=== PATIENT | male | born 1940 | race Caucasian/White ===

== ENCOUNTER 2017-10-23 10:26 | Inpatient (IN) | payer MEDICARE ==
[~2017-10-23] VITALS: Ht 182.9 cm; Wt 111.2 kg
--- NOTE | ~2017-10-23 | OP ---
PATIENT NAME: HERMILO STRINGER MEDICAL RECORD: [id number] :40 LOCATION:[facility] ADMISSION DATE:10/23/17 SURGEON: STEPHANIE GARCIA MD DATE OF OPERATION: 10/23/2017 PROCEDURES: Left heart cath, selective coronary artery, right femoral artery approach. CATHETERS: 5-Cameroonian sheath, 5/4 left and right Camille, 5/4 pig. The procedure was well tolerated and the patient returned to the [facility]. Sheath removed. ExoSeal device was placed. FINDINGS: Left ventriculography not performed. Aortic root injection shows mild aortic insufficiency. CORONARY ANATOMY: LEFT MAIN: Left main has 40% stenosis. LAD: Takeoff of first diagonal has a 90% stenosis of those vessels; however, LAD and diagonal both appeared to be good target distally. The true ramus branch has about 80% stenosis in proximal portion. CIRCUMFLEX: It has one moderate-size OM with an ostial stenosis of 90%. RIGHT CORONARY: In its midportion, it has 80% stenosis. IMPRESSION: Multivessel coronary artery disease and mild AI. Dr. Mcqueen was consulted for possible coronary artery bypass grafting. TRANSINT:[id number] Voice Confirmation ID: [id number] DOCUMENT ID: [id number] STEPHANIE GARCIA MD at 1337 CC: [id number] DICTATION DATE: 10/23/17 1243 SWING SAW OPERATOR: 10/23/17 1331 DIS IN 11/02/17 [place] [id number] [place] [id number]
--- NOTE | ~2017-10-23 | HP ---
PATIENT: HERMILO STRINGER MEDICAL RECORD: [id number] ACCOUNT: [id number] LOCATION:[facility] : 40 ADMISSION DATE: 10/23/17 HISTORY AND PHYSICAL EXAMINATION HISTORY OF PRESENT ILLNESS: A 76-year-old gentleman with known history of coronary artery disease, history of hypertension, and ongoing smoking history, who presented to the ER with chest pain radiating to the jaw of approximately 4 hours duration. It awoke him from sleep. He does have history of smoking, history of hypertension. EKGs showed right bundle, marginal ST elevation inferiorly. He was brought to the labor utilization superintendent on an emergent basis. PAST MEDICAL HISTORY: Includes history of hypertension, hyperlipidemia. PHYSICAL EXAMINATION: GENERAL: Uncomfortable appearing gentleman in mild distress. VITAL SIGNS: Pulse is 99 and regular, blood pressure 141/78. HEENT: Normocephalic, atraumatic. NECK: No JVD or bruit. HEART: Regular. LUNGS: Desir clear. EXTREMITIES: Pulses 2+. No edema. IMPRESSION: Possible STEMI, to the labor utilization superintendent on an urgent basis. TRANSINT:[id number] Voice Confirmation ID: [id number] DOCUMENT ID: [id number] STEPHANIE GARCIA MD at 1337 CC: [id number] DICTATION DATE: 10/23/17 1157 CONSTRUCTION MATERIALS TESTER: 10/23/17 1417 DIS IN 11/02/17 [place] [address] [place] [address]
--- NOTE | ~2017-10-23 | HEMODYNAMI ---
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 MEDICAL RECORD: [id number] : 40 [id number] ADMISSION DATE: 10/23/17 Generatedon:10/23/201712:45 Patient name: HERMILO STRINGER Patient #: [id number] : 1940 Date of study: 10/23/2017 Page: Of Hemodynamic Procedure Report Patient Data Patient Demographics Procedure consent was obtained First Name: HERMILO Gender: Male Last Name: MYKE : 1940 Patient #: [id number] Age: 76 year(s) Race: SSN: [id number] Additional ID: [id number] Contact details Address: [address] [place] [address] [employer] [place] State: [place] City: [place] Zip code: [address] Admission Admission Data Admission Date: 10/23/2017 Admission Time: 10:26 Arrival Date: 10/23/2017 Arrival Time: 10:26 Admit Source: Emergency Insurance Payor: Medicare department Lab Results Lab Result Date: 10/23/2017 Lab Result Time: 0:00 Biochemistry Name Units Result Min Max BUN mg/dl 14 --(--*-)-- 7 18 Creatinine mg/dl 0.8 --(-*--)-- 0.6 1.3 CBC Name Units Result Min Max Hemoglobin g/dl 14.9 --(-*--)-- 13.5 17.5 Procedure Procedure Types Cath Procedure Diagnostic Procedure LHC LHC w/Coronaries Miscellaneous Procedures Moderate Sedation up to 15 minutes Procedure Description Procedure Date Procedure Date: 10/23/2017 Procedure Start Time: 12:03 Procedure End Time: 12:44 Procedure Staff Name Function Shoaib Ruggiero MD Performing Physician Ana M Cortez RT Monitor Salma Canada RT Scrub Jason Rutherford RN Nurse Procedure Data Cath Procedure Fluoroscopy Diagnostic fluoroscopy Total fluoroscopy Time: 2.4 time: 2.4 min min Diagnostic fluoroscopy Total fluoroscopy dose: 755 dose: 755 mGy mGy Contrast Material Contrast Material Type Amount (ml) Isovue 300 78 Entry Location Entry Primary Successful Side Size Upsize Upsize Entry Closure Succes sful Closure Location (Fr) 1 (Fr) 2 (Fr) Remarks Device Remarks Femoral Right 6 Fr Exoseal artery Short Estimated blood loss: 5 ml Diagnostic catheters Device Type Used For End Catheter Placement MULTIPACK JL 4.0 5Fr Left Coronary catheter Angiography MULTIPACK 3DRC 5Fr Right Coronary catheter Angiography MULTIPACK Pigtail 5 Fr LV Angiography catheter Procedure Complications No complications Procedure Medications Medication Administration Route Dosage 0.9% NaCl I.V. 100 ml/hr Oxygen NC 3 l/min Heparin Flush Bag added to field 2 bags (1000units/500ml NS) Lidocaine 2% added to field Versed I.V. 0.5 mg Fentanyl I.V. 25 mcg Heparin Bolus I.V. 5000 units Heparin Drip I.V. drip 1000 units/hr (38232xhfts/250 D5W) Hemodynamics Rest HGB: 14.9 (g/dl) Heart Rate: 88 (bpm) Snapshots Pre Cath Intra NCS Post Cath Vital Signs Time Heart Resp SPO2 NIBP (mmHg) Rhythm Pain Sedation Rate (ipm) (%) Status Level (bpm) 11:55:14 87 14 99 141/78(101) NSR 6 (11) 10(A) , Intense 11:59:57 86 12 99 130/72(106) NSR 6 (11) 10(A) , Intense 12:04:38 85 14 98 121/71(91) NSR 0 (11) 9(A) , No pain 12:09:20 90 12 97 127/72(103) NSR 0 (11) 9(A) , No pain 12:14:01 89 13 98 118/64(87) NSR 0 (11) 9(A) , No pain 12:42:01 98 118/59(96) NSR 0 (11) 10(A) , No pain Medications Time Medication Route Dose Verified Delivered Reason Not es Effectiveness by by 11:54:47 0.9% NaCl I.V. 100 Jason Jason Per physician ml/hr Krish Rutherford RN RN 11:54:59 Oxygen NC 3 l/min Jason Jason Per physician Krish Rutherford RN RN 11:55:11 Heparin Flush added 2 bags Jason Jason used for Bag to Krish Rutherford procedure (1000units/500ml RN RN NS) 11:55:25 Lidocaine 2% added Jason Jason used for to Lorigan Lorigan procedure RN RN 12:01:18 Versed I.V. 0.5 mg Jason Jason for sedation Krish Rutherford RN RN 12:01:32 Fentanyl I.V. 25 mcg Jason Jason for sedation Krish Rutherford RN RN 12:14:24 Heparin Bolus I.V. 5000 Jason Jason for units Lorigan Lorstephany anticoagulation RN RN 12:19:22 Heparin Drip I.V. 1,000 Jason Jason for (65321sawsr/250 drip units/hr Lorigan Lorigan anticoagulation D5W) RN mortuary beautician Log Time Note 11:39:39 Informed consent obtained and on chart 11:39:54 Admit Source: Emergency department 11:40:00 Arrival Date: 10/23/2017 10:26:00 AM 11:40:09 Insurance Payor : Medicare 11:40:46 Lab Result : Hemoglobin 14.9 g/dl 11:40:46 Lab Result : Creatinine 0.8 mg/dl 11:40:46 Lab Result : BUN 14 mg/dl 11:40:56 Diagnostic Cath Status : Elective 11:41:15 Salma Counts RT(R) sent for patient. Start room use. 11:41:16 Time tracking: Regular hours 11:41:21 Plan of Care:Hemodynamics will remain stable., Cardiac rhythm will remain stable., Comfort level will be maintained., Respiratory function will remain adequate., Patient/ family verbilizes understanding of procedure., Procedure tolerated without complication., Recovers from procedure without complications.. 11:51:32 Patient received from ED to CCL 1 Alert and oriented. Tansferred to table in Supine position. 11:51:33 Warm blankets applied, and james hugger turned on for patient comfort. 11:51:34 Correct patient and procedure confirmed by team. 11:51:34 ECG and BP/O2 sat monitors applied to patient. 11:54:23 Vital chart was started 11:54:47 0.9% NaCl 100 ml/hr I.V. was administered by Jason Rutherfrod RN; Per physician; 11:54:59 Oxygen 3 l/min NC was administered by Jason Rutherford RN; Per physician; 11:55:11 Heparin Flush Bag (1000units/500ml NS) 2 bags added to field was administered by Jason Rutherford RN; used for procedure; 11:55:25 Lidocaine 2% added to field was administered by Jason Rutherford RN; used for procedure; 11:56:46 Baseline sample Acquired. 11:56:51 Rhythm: sinus rhythm , w/ ST elevation 11:56:53 Full Disclosure recording started 11:56:56 H&P Date Dictated: 10/23/2017 New H&P dictated by physician.. 11:56:58 Pre-procedure instructions explained to patient. 11:56:58 Pre-op teaching completed and patient verbalized understanding. 11:57:01 Family in waiting room. 11:57:05 Patient NPO since Midnight. 11:57:08 Is the patient allergic to Iodine/contrast media? No. 11:57:10 Was the patient premedicated? No 11:59:48 Is patient on blood thinner?No 11:59:51 Patient diabetic? No. 11:59:54 Previous problem with sedation/anesthesia? No ? 11:59:56 Snore? Yes 11:59:59 Sleep apnea? Yes 12:00:00 Deviated septum? No 12:00:01 Opens mouth fully? Yes 12:00:02 Sticks out tongue? Yes 12:00:06 Airway obstruction? No ? 12:00:12 Dentures? No ? 12:00:25 Pre procedure: right dorsailis pedis pulse 1+ Palpable, but thready & weak; easily obliterated 12:00:28 Pre procedure: left dorsailis pedis pulse 1+ Palpable, but thready & weak; easily obliterated 12:00:31 Patient pain scale 7/10 ?. 12:00:38 IV patent on arrival in left forearm with 0.9% NaCl at [facility]. 12:00:40 Lab results completed and on chart. 12:00:44 Right groin area was prepped with chlora-prep and draped in sterile fashion 12:00:45 Alarms reviewed by RYoav N. 12:00:45 Sharps counted by scrub and verified by R.N. 12:00:47 Physician arrived 12:00:47 --------ALL STOP TIME OUT------ 12:00:48 Final Timeout: patient, procedure, and site verified with staff and physician. All members of the team are in agreement. 12:00:49 Right groin site verified by team. 12:00:52 Physical assessment completed. ASA score P 2 - A patient with mild systemic disease as per Shoaib Ruggiero MD. 12:00:56 Sedation plan: IV Moderate Sedation Medication:Versed, Fentanyl 12:01:18 Versed 0.5 mg I.V. was administered by Jason Rutherford RN; for sedation; 12:01:32 Fentanyl 25 mcg I.V. was administered by Jason Rutherford RN; for sedation; 12:03:38 Procedure started. 12:03:42 Local anesthetic to right femoral artery with Lidocaine 2% by Shoaib Rgugiero MD.INITIAL ACCESS ONLY 12:03:51 A 6 Fr Short sheath was inserted into the Right Femoral artery 12:03:58 Use device set Femoral Dx 12:03:59 ACIST Syringe (17619) opened to sterile field. 12:04:00 Bag Decanter (2002S) opened to sterile field. 12:04:01 Medline Cath Pack ([id number]) opened to sterile field. 12:04:02 DIAGNOSTIC WIRE .035 260cm J wire (462006) opened to sterile field. 12:04:03 ACIST Hand Control (98062) opened to sterile field. 12:04:04 ACIST Manifold (97778) opened to sterile field. 12:04:06 DIAGNOSTIC Multipack 5Fr catheter set (AL1546) opened to sterile field. 12:04:07 Tegaderm 4 x 4 (1626W) opened to sterile field. 12:04:14 SHEATH 6FR Roslyn (MFO795) opened to sterile field. 12:04:26 A MULTIPACK JL 4.0 5Fr catheter was advanced over the wire and used for Left Coronary Angiography. 12:05:10 Zero performed for pressure channel P1 12:05:16 Zero performed for pressure channel P1 12:05:26 Zero performed for pressure channel P1 12:05:35 Zero performed for pressure channel P1 12:05:58 LCA angiography performed. 12:06:01 Injector settings: Ml/sec: 3, Volume: 6, 12:07:17 Catheter removed. 12:07:21 A MULTIPACK 3DRC 5Fr catheter was advanced over the wire and used for Right Coronary Angiography. 12:08:18 RCA angiography performed. 12:08:23 Injector settings: Ml/sec: 3, Volume: 6, 12:08:37 Catheter removed. 12:09:10 A MULTIPACK Pigtail 5 Fr catheter was advanced over the wire and used for LV Angiography. 12:11:25 Aortic Root visualized 12:11:29 Catheter removed. 12:11:41 EXOSEAL 6Fr (EX600) opened to sterile field. 12:12:45 Sheath removed intact; hemostasis achieved with Exoseal to the Right Femoral artery. 12:12:47 Procedure ended.(Physican Out) 12:13:07 Fluoroscopy time 02.40 minutes. 12:13:11 Flurop Dose total: 755 12:13:11 Fluoroscopy dose: 755 mGy 12:14:24 Heparin Bolus 5000 units I.V. was administered by Jason Rutherford RN; for anticoagulation; 12:14:24 Contrast amount:Isovue 300 78ml. 12:14:26 Sharps counted by scrub and verified by R.N. 12:14:29 Insertion/operative site no bleeding no hematoma. 12:14:35 Post-op/insertion site Right Femoral artery dressed using a 4 x 4 and Tegaderm. 12:14:40 Post right femoral artery:stable 12:14:42 Post Procedure Pulses reassessed and unchanged 12:14:46 Post procedure rhythm: unchanged. 12:14:48 Estimated blood loss: 5 ml 12:14:49 Post procedure instruction explained to patient.Patient verbalizes understanding. 12:14:50 Patient needs reinforcement of post procedure teaching. 12:15:05 Procedure type changed to Cath procedure, Diagnostic procedure, LHC, LHC w/Coronaries, Miscellaneous Procedures, Moderate Sedation up to 15 minutes 12:15:06 Procedure and supply charges have been captured, reviewed, submitted and are correct. 12:15:14 Procedure Complication : No complications 12:15:18 Vital chart was stopped 12:15:21 See physician's report for complete and final results. 12:19:22 Heparin Drip (44363xczgm/250 D5W) 1,000 units/hr I.V. drip was administered by Jason Rutherford RN; for anticoagulation; 12:41:09 Vital chart was started 12:44:39 Report given to PCU. 12:44:42 Patient transfered to PCU with Stretcher. 12:44:45 Procedure ended. 12:44:45 Full Disclosure recording stopped 12:44:49 End room use (Document Last) 12:45:38 Vital chart was stopped Device Usage Item Name Manufacture Quantity Catalog Hospital Part Current Minimal L ot# / Number Charge Number Stock Stock Serial# Code ACIST Acist 1 71469 618294 714372 074151 20 Syringe Medical (24909) Systems Inc Bag Microtek 1 2001S 853044 64345 712935 5 Decanter Medical Inc. () Medline Cardinal 1 [id number] 969158 85669 461065 5 Cath Pack Health ([id number]) DIAGNOSTIC St Wei 1 059070 088119 299898 317059 30 WIRE .035 260cm J wire (694509) ACIST Hand Acist 1 72504 617733 714760 978114 5 Control Medical (99512) Systems Inc ACIST Acist 1 03854 524154 711387 484361 5 Manifold Medical (55743) Systems Inc DIAGNOSTIC Cardinal 1 OT0884 872384 46500 870223 30 Multipack Health 5Fr catheter set (IN5350) Tegaderm 4 3M 1 1626W 111785 070359 893022 5 x 4 (1626W) SHEATH 6FR Terumo 1 YNZ150 705578 077405 777956 40 Roslyn (HOS699) MULTIPACK Cardinal 1 217661 5 JL 4.0 5Fr Health catheter MULTIPACK Cardinal 1 727441 5 3DRC 5Fr Health catheter MULTIPACK Cardinal 1 561639 5 Pigtail 5 Health Fr catheter EXOSEAL 6Fr Cardinal 1 EX600 224633 634929 908713 10 (EX600) Health Signature Audit Thida Stage Time Signature Unsigned Intra-Procedure 10/23/2017 Ana M Cortez 12:45:36 PM RT(R) Signatures Monitor : Ana M Cortez RT Signature : Date : Time : [facility] [address] [place] [address]
--- NOTE | ~2017-10-23 | EC ---
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 DATE OF SERVICE: 10/23/17 SEX: M MEDICAL RECORD: [id number] DATE OF : 40 LOCATION:[place] [address] AGE OF PATIENT: 76 ADMISSION DATE: 10/23/17 REFERRING PHYSICIAN: INTERPRETING PHYSICIAN: STEPHANIE GARCIA MD ECHOCARDIOGRAM REPORT ECHO CHARGES 4 ECHO COMPLETE CLINICAL DIAGNOSIS: PRE-OP/CAD ECHOCARDIOGRAPHIC MEASUREMENTS (adult normal given) AC root (d.<3.7cm) 3.9 cm LV Septum d (<1.2 cm> 1.7 cm Valve Excursion 1.6 cm LV Septum (systole) 1.9 cm Left Atria (s.<4.0cm> 3.8 cm LVPW d(<1.2cm) 1.8 cm RV (d.<2.3cm) 5.5 cm LVPW (sytole) 2.0 cm LV diastole(<5.6CM) 5.7 cm MV E-F(>70mm/sec) cm LV systole 4.4 cm LVOT Diameter 1.4 cm MV exc.(>10mm) 1.0 cm Est.ejection fraction (50-75%) % Pericardial Effusion N DOPPLER: LVIT cm/sec A 112 cm/sec E 49.0 cm/sec LA cm/sec RVSP 32 mmHg LVOT 161 cm/sec AOP1/2T m/s Asc. Ao 235 cm/sec RVOT 108 cm/sec RA cm/sec PA 127 cm/sec AV Gradient Peak 22.0 mmHg AV Mean 13.26mmHg AV Area 2.0 cm MV Gradient Peak 6.10 mmHg MV Mean 2.83 mmHg MV Area cm COMMENTS: JOEL WAS TRACED Sales Porter: Kiya LINDSEY Freezer Worker: 3 Dr. Ruggiero TAPE# PACS DATE OF SERVICE: 10/23/2017 Adequate 2D echo, color flow and spectral Doppler, and M-mode. LVH is present. LV internal dimensions are normal. Wall motion is normal. EF is greater than 55%. Aortic valve is calcified, but with minimal restriction of motion. Peak gradient 22 mmHg putting this in the mild range. Left atrium is normal. Mitral valve shows no prolapse. Trivial MR. Right-sided chamber size is normal, trivial TR. TRANSINT:[id number] Voice Confirmation ID: [id number] DOCUMENT ID: [id number] ECHOCARDIOGRAM REPORT [id number] HERMILO STRINGER 10/26/2017 Edited to correct date of service, dmm. STEPHANIE GARCIA MD at 1337 CC: [id number] DICTATION DATE: 10/24/17 0941 DEPORTATION OFFICER: 10/24/17 1145 DIS IN 11/02/17 [place] [address] [place] [address]
--- NOTE | ~2017-10-23 | TEE ---
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 MEDICAL RECORD: [id number] LOCATION:[place] [address] AGE OF PATIENT: 76 ADMISSION DATE: 10/23/17 SEX: M REFERRING PHYSICIAN: INTERPRETING PHYSICIAN: FLORIDA INFANTE MD TRANSESOPHAGEAL ECHOCARDIOGRAM SONI CHARGE Y INDICATIONS: CABG PREMEDICATIONS: PATIENT'S RESPONSE PROCEDURE DOPPLER MEASUREMENTS: LVIT LA PA 127 RA LVOT 161 RVOT 108 Asc. Ao 235 AV Gradient Peak 22.0 AV Mean 13.26 AV Area 2.0 MV Gradient Peak 6.10 MV Mean 2.83 MV Area INTERPRETATION: LVd: 3.9 cm LVs: 2.2 cm Doppler: 2-D: COLOR FLOW DOPPLER NORMAL SALINE STUDY: MISCELLANOUS: DIAGNOSIS: PLAN: Forestry Biology Specialist:3 Dr. Ruggiero Custom Home Installer: Lorenzo MELENDEZ COMMENTS: JOEL WAS TRACED DATE OF SERVICE: 10/26/2017 PROCEDURE: Transesophageal echo evaluation of valvular structures during bypass surgery. FINDINGS: 1. Left ventricle chamber size is within normal limits. Left ventricular systolic function is normal. Overall ejection fraction estimated at 55%. 2. Left atrium, right atrium, and right ventricular chamber sizes are within TRANSESOPHAGEAL ECHOCARDIOGRAM REPORT [id number] HERMILO STRINGER normal limits. 3. Valvular structures have normal structure and motion. 4. Doppler interrogation only reveals mild mitral regurgitation. No other valvular insufficiency or stenosis. 5. No evidence of pericardial effusion or left ventricular thrombus. TRANSINT:[id number] Voice Confirmation ID: [id number] DOCUMENT ID: [id number] at 1323 CC: [id number] DICTATION DATE: 10/26/17 1022 ELEVATOR ERECTOR HELPER: 10/27/17 0244 DIS IN 11/02/17 [facility] [address] [place] [address]
--- NOTE | ~2017-10-23 | OP ---
PATIENT NAME: HERMILO STRINGER MEDICAL RECORD: [id number] :40 LOCATION:[facility] ADMISSION DATE:10/23/17 SURGEON: KEVIN MCQUEEN MD DATE OF OPERATION: 10/26/2017 SURGEON: Kevin Mcqueen MD ANESTHESIA: General endotracheal, Avi Mistry MD OPERATIONS PERFORMED: 1. Coronary artery bypass utilizing left internal thoracic and left anterior descending. 2. Reverse saphenous vein graft to the second diagonal coronary artery. 3. Reverse saphenous vein graft to the ramus coronary artery. 4. Reverse saphenous vein graft to the posterior descending coronary artery. 5. Culture of the pericardium. 6. Pericardial biopsy. PREOPERATIVE DIAGNOSES: Intermediate coronary syndrome, severe atherosclerosis, and coronary artery disease. POSTOPERATIVE DIAGNOSES: Intermediate coronary syndrome, severe atherosclerosis, and coronary artery disease in addition to acute pericarditis. INDICATION FOR OPERATION: Angina pectoris. FINDINGS OF THE OPERATION: The left internal thoracic and greater saphenous vein were of great quality for grafting. The target vessels were of good quality for grafting. The patient had acute pericarditis, making identification of the vessels very difficult. The patient has mild aortic stenosis by transesophageal echo. His valve moves appropriately and is a tricuspid valve. Cultures were taken from the pericardium for viruses, anaerobic, aerobic, TB, and fungus. Pericardial biopsy was sent for histology. ESTIMATED BLOOD LOSS: Cell Saver was used. DESCRIPTION OF PROCEDURE: After informed consent, adequate preoperative medication, and evaluation, the patient was brought to the operating room and placed on the table in supine position. After induction of general endotracheal anesthesia and application of appropriate monitoring devices, chest, neck, abdomen, and both legs were prepped and draped in sterile field utilizing Betadine scrub, alcohol, and Betadine solution. Betadine-impregnated drape was also used. Saphenous vein was harvested from right thigh and prepared for reverse saphenous vein grafting. The wounds were closed over drains utilizing 3-0 Vicryl and skin den. A median sternotomy incision was used and dissection was carried down to the fascia. Hemostasis was maintained with electrocautery. Left internal thoracic was taken down and prepared for grafting. The pericardium was opened. The pericardium had a small amount of blood-tinged fluid. Cultures were taken. Pericardial biopsy was taken. The patient had acute pericarditis, making identification of the vessels difficult. The patient was placed on cardiopulmonary bypass utilizing one aortic, one 2-stage cannula in the atrium and inferior vena cava. The patient was placed on cardiopulmonary bypass, cooled to 27 degrees centigrade. A crossclamp was placed just proximal to the aortic cannula and the patient was given OPERATIVE REPORT [id number] MYKEHERMILO cardioplegic solution through the aortic root. The patient was given warm induction and cold maintenance. The patient was given cold intermittent cardioplegic solution throughout the procedure through the aortic root. The first vessel to be grafted was the posterior descending. It was grafted end-to-side utilizing running 7-0 Prolene suture. Grafts were measured back to the aorta and proximal anastomosis was fashioned utilizing running 6-0 Prolene suture. Next, the ramus was grafted end-to-side utilizing a running 7-0 Prolene suture. Grafts were measured back to the aorta and the proximal anastomosis fashioned utilizing running 6-0 Prolene suture. Next, the second diagonal was identified and an end-to-side anastomosis fashioned utilizing a running 7-0 Prolene suture. The graft was measured back to the aorta and the proximal anastomosis was fashioned utilizing running 6-0 Prolene suture. Next, the left internal thoracic was brought through the hole in pericardium, sutured left anterior descending end-to-side utilizing running 8-0 Prolene suture. Pedicle was attached to epicardium with 6-0 Prolene suture. All maneuvers to remove trapped air were performed. The patient was given warm cardioplegic reperfusion and controlled reperfusion. The patient rewarmed to 37 degrees centigrade. Two atrial and two ventricular pacing wires were placed on the heart and brought out through the epigastric area. The patient was weaned cardiopulmonary bypass. After being stable off bypass, given calculated dose of protamine to reverse the heparin. Hemostasis was achieved. A #40 right angle and #36 chest tubes were brought in through the epigastric area and placed in the mediastinum. A separate left pleural tube was connected to underwater seal and suction. Chest was again irrigated. Instrument count and sponge count were correct times 2. Chest was closed in layers utilizing #7 wire on the sternum, #2 Vicryl on linea alba and pectoralis fascia. Subcutaneous tissue was approximated with 3-0 Vicryl and skin was approximated with 3-0 subcuticular Vicryl. Sterile dressings were applied. The patient tolerated the procedure well and transferred to cardiovascular recovery in critical but stable condition. TRANSINT:[id number] Voice Confirmation ID: [id number] DOCUMENT ID: [id number] KEVIN MCQUEEN MD at 1319 CC: [id number] DICTATION DATE: 10/26/17 1648 VEGETABLE I FARMWORKER: 10/26/17 1850 ADM IN [facility] [address] [place] [address]
[2017-10-23 10:54] LABS: BASOPHILS 0.2 % (0-2); EOSINOPHILS 1.1 % (0-7); HEMATOCRIT 43.5 % (42.0-54.0); HEMOGLOBIN 14.9 g/dL (13.5-17.5); IMMATURE GRANULOCYTES 0.3 % (0-5); LYMPHOCYTES 13.1 % (15-50); MCH 32.3 pg (26.0-34.0); MCHC 34.3 g/dL (31.0-37.0); MCV 94.4 fL (80.0-100.0); MEAN PLATELET VOLUME 9.8 fL (7.4-10.4); MONOCYTES 8.5 % (2-11); NEUTROPHILS 76.8 % (40-80); PLATELET COUNT 179 10x3/uL (130-400); RBC 4.61 10x6/uL (4.20-6.10); RDW 12.8 % (11.5-14.5); WBC 11.9 10x3/uL (4.8-10.8)
[2017-10-23 11:07] LABS: ALBUMIN 3.7 g/dL (3.4-5.0); ALKALINE PHOSPHATASE 77 U/L (46-116); ALT (SGPT) 26 U/L (10-68); CALC OSMOLALITY 275 mosm/kg (275-300); CALCIUM 8.9 mg/dL (8.5-10.1); CARBON DIOXIDE 28.8 mmol/L (21.0-32.0); CHLORIDE - SERUM 101 mmol/L (98-107); CREATININE - SERUM 0.8 mg/dL (0.6-1.3); GLUCOSE 148 mg/dL (74-106); POTASSIUM - SERUM 4.1 mmol/L (3.5-5.1); PROTEIN - SERUM 7.1 g/dL (6.4-8.2); SODIUM 136 mmol/L (136-145); UREA NITROGEN 14 mg/dL (7-18); eGFR NON AFRICAN AMERICAN > 90 mL/min (90-120)
[2017-10-23 11:17] LABS: CHOL - HDL RATIO 4.4 ratio (2.3-4.9); CHOLESTEROL, TOTAL 213 mg/dL (0-200); CKMB 2.9 U/L (0.0-3.6); CREATINE KINASE 154 UL (21-232); HDL CHOLESTEROL 49 mg/dL (32-96); LDL CHOLESTEROL 141 mg/dL (0-100); LDL-HDL RATIO 2.9 ratio (1.5-3.5); TRIGLYCERIDE 119 mg/dL (30-200); TROPONIN-I < 0.017 ng/mL (0.000-0.060)
[2017-10-23] MEDS ORDERED: NORVASC5 MG PO (13:13)
[2017-10-23] MEDS ORDERED: CARDURA4 MG PO (13:13)
[2017-10-23] MEDS ORDERED: BAYER CHEWABLE81 MG PO (13:15)
[2017-10-23] MEDS ORDERED: VITAMIN C1000 MG PO (13:16)
[2017-10-23] MEDS ORDERED: NIASPAN500 MG PO (13:16)
[2017-10-23 13:39] VITALS: BP 102/55; BMI 29.2
[2017-10-23 16:25] VITALS: BP 102/56
[2017-10-23 21:27] VITALS: BP 123/65
[2017-10-24 01:46] VITALS: BP 108/64
[2017-10-24 05:40] VITALS: BP 136/67
[2017-10-24 08:49] VITALS: BP 134/69
[2017-10-24 10:58] VITALS: BMI 29.1
[2017-10-24 12:52] VITALS: BP 128/62
[2017-10-24 14:51] LABS: COLD SCREEN @ 4 DEGREES 2+ (NEGATIVE); COLD SCREEN ROOM TEMP NEGATIVE (NEGATIVE)
[2017-10-24 16:14] VITALS: BP 124/61
[2017-10-24 19:00] VITALS: BP 126/63
[2017-10-24 21:46] LABS: APPEARANCE CLEAR (CLEAR); BILIRUBIN NEGATIVE (NEGATIVE); COLOR YELLOW (YELLOW); GLUCOSE NEGATIVE (NEGATIVE); KETONE NEGATIVE (NEGATIVE); NITRITE NEGATIVE (NEGATIVE); PROTEIN NEGATIVE (NEGATIVE); SPECIFIC GRAVITY 1.015 (1.005-1.020); UROBILINOGEN NORMAL (NORMAL)
[2017-10-25 04:00] VITALS: BP 131/66
[2017-10-25 06:07] LABS: BASOPHILS 0.2 % (0-2); EOSINOPHILS 2.4 % (0-7); HEMATOCRIT 35.7 % (42.0-54.0); HEMOGLOBIN 12.3 g/dL (13.5-17.5); IMMATURE GRANULOCYTES 0.2 % (0-5); LYMPHOCYTES 20.9 % (15-50); MCHC 34.5 g/dL (31.0-37.0); MEAN PLATELET VOLUME 10.2 fL (7.4-10.4); MONOCYTES 10.7 % (2-11); NEUTROPHILS 65.6 % (40-80); PLATELET COUNT 179 10x3/uL (130-400); RBC 3.84 10x6/uL (4.20-6.10); RDW 12.7 % (11.5-14.5)
[2017-10-25 06:13] LABS: WBC 8.3 10x3/uL (4.8-10.8)
[2017-10-25 06:29] LABS: APTT 38.5 SECONDS (22.8-39.4); INR 1.03 (0.85-1.17); PROTIME 13.1 SECONDS (11.6-15.0)
[2017-10-25 06:35] LABS: ALBUMIN 2.8 g/dL (3.4-5.0); ALKALINE PHOSPHATASE 50 U/L (46-116); BILIRUBIN - TOTAL 0.56 mg/dL (0.2-1.3); CALC OSMOLALITY 274 mosm/kg (275-300); CALCIUM 9.1 mg/dL (8.5-10.1); CARBON DIOXIDE 25.6 mmol/L (21.0-32.0); CHLORIDE - SERUM 101 mmol/L (98-107); CHOLESTEROL, TOTAL 179 mg/dL (0-200); CREATININE - SERUM 0.7 mg/dL (0.6-1.3); GLUCOSE 141 mg/dL (74-106); PHOSPHOROUS 2.9 mg/dL (2.5-4.9); POTASSIUM - SERUM 3.7 mmol/L (3.5-5.1); PROTEIN - SERUM 6.3 g/dL (6.4-8.2); SODIUM 136 mmol/L (136-145); T4 THYROXIN - FREE 0.92 ng/dL (0.76-1.46); THYROID STIMULATING HORMONE 0.84 uIU/mL (0.36-3.74); UREA NITROGEN 14 mg/dL (7-18); URIC ACID 5.4 mg/dL (2.6-7.2); eGFR NON AFRICAN AMERICAN > 90 mL/min (90-120)
[2017-10-25 06:44] LABS: ALT (SGPT) 19 U/L (10-68)
[2017-10-25 06:58] LABS: HEMOGLOBIN A1C 6.1 % (4.8-6.0)
[2017-10-25 07:42] VITALS: BP 126/79
[2017-10-25 11:26] VITALS: BP 129/66
[2017-10-25 15:26] LABS: APTT 33.5 SECONDS (22.8-39.4); PROTIME 12.8 SECONDS (11.6-15.0)
[2017-10-25 15:35] VITALS: BP 132/72
[2017-10-25 17:11] LABS: HEPATITIS C ANTIBODY 0.1 (0.0-0.9)
[2017-10-25 20:46] VITALS: BP 153/76
[2017-10-25 23:44] VITALS: BP 139/69
[2017-10-26] VITALS (29 sets, daily range): BP systolic 89–134; BP diastolic 44–86
[2017-10-26 08:28] LABS: PLT FUNCT.(P2Y12) PLAVIX 273 PRU (194-418)
[2017-10-26 16:03] LABS: HEMATOCRIT 29.8 % (42.0-54.0); HEMOGLOBIN 10.2 g/dL (13.5-17.5); MCH 32.1 pg (26.0-34.0); MCHC 34.2 g/dL (31.0-37.0); MCV 93.7 fL (80.0-100.0); MEAN PLATELET VOLUME 9.9 fL (7.4-10.4); RBC 3.18 10x6/uL (4.20-6.10); RDW 12.5 % (11.5-14.5)
[2017-10-26 16:04] LABS: WBC 18.3 10x3/uL (4.8-10.8)
[2017-10-26 16:14] LABS: APTT 32.4 SECONDS (22.8-39.4)
[2017-10-26 16:15] LABS: CALC OSMOLALITY 290 mosm/kg (275-300); CALCIUM 7.8 mg/dL (8.5-10.1); CARBON DIOXIDE 25.5 mmol/L (21.0-32.0); CHLORIDE - SERUM 110 mmol/L (98-107); GLUCOSE 186 mg/dL (74-106); POTASSIUM - SERUM 3.4 mmol/L (3.5-5.1); SODIUM 143 mmol/L (136-145); UREA NITROGEN 15 mg/dL (7-18); eGFR NON AFRICAN AMERICAN 87 mL/min (90-120)
[2017-10-26 16:19] LABS: CREATININE - SERUM 0.9 mg/dL (0.6-1.3)
[2017-10-26 16:34] LABS: INR 1.32 (0.85-1.17)
[2017-10-27] VITALS (96 sets, daily range): BP systolic 91–138; BP diastolic 43–66; Ht 182.9 cm; Wt 111.2 kg
[2017-10-27 06:16] LABS: HEMOGLOBIN 8.3 g/dL (13.5-17.5); MCH 32.5 pg (26.0-34.0); MCHC 35.9 g/dL (31.0-37.0); MEAN PLATELET VOLUME 9.7 fL (7.4-10.4); RBC 2.55 10x6/uL (4.20-6.10); RDW 12.7 % (11.5-14.5); WBC 14.6 10x3/uL (4.8-10.8)
[2017-10-27 06:41] LABS: HEMATOCRIT 23.1 % (42.0-54.0); MCV 90.6 fL (80.0-100.0)
[2017-10-27 06:45] LABS: ALBUMIN 2.5 g/dL (3.4-5.0); ALKALINE PHOSPHATASE 38 U/L (46-116); ALT (SGPT) 29 U/L (10-68); CALCIUM 8.2 mg/dL (8.5-10.1); CARBON DIOXIDE 24.5 mmol/L (21.0-32.0); CHLORIDE - SERUM 109 mmol/L (98-107); CREATININE - SERUM 0.7 mg/dL (0.6-1.3); PROTEIN - SERUM 5.3 g/dL (6.4-8.2); SODIUM 143 mmol/L (136-145); eGFR NON AFRICAN AMERICAN > 90 mL/min (90-120)
[2017-10-27 06:47] LABS: CALC OSMOLALITY 289 mosm/kg (275-300); GLUCOSE 136 mg/dL (74-106); POTASSIUM - SERUM 4.3 mmol/L (3.5-5.1); UREA NITROGEN 20 mg/dL (7-18)
[2017-10-27 18:10] LABS: ACID FAST SMEAR Negative (()); AFB SPECIMEN PROCESSING Concentration (())
[2017-10-28] VITALS (77 sets, daily range): BP systolic 101–144; BP diastolic 47–75
[2017-10-28 06:43] LABS: HEMOGLOBIN 8.3 g/dL (13.5-17.5); MCH 31.3 pg (26.0-34.0); MCHC 34.6 g/dL (31.0-37.0); MCV 90.6 fL (80.0-100.0); MEAN PLATELET VOLUME 10.3 fL (7.4-10.4); RBC 2.65 10x6/uL (4.20-6.10); RDW 13.9 % (11.5-14.5); WBC 13.9 10x3/uL (4.8-10.8)
[2017-10-28 07:00] LABS: ALBUMIN 2.8 g/dL (3.4-5.0); ALKALINE PHOSPHATASE 37 U/L (46-116); ALT (SGPT) 34 U/L (10-68); CALC OSMOLALITY 274 mosm/kg (275-300); CALCIUM 8.2 mg/dL (8.5-10.1); CARBON DIOXIDE 25.3 mmol/L (21.0-32.0); CHLORIDE - SERUM 101 mmol/L (98-107); CREATININE - SERUM 0.7 mg/dL (0.6-1.3); GLUCOSE 157 mg/dL (74-106); POTASSIUM - SERUM 4.4 mmol/L (3.5-5.1); PROTEIN - SERUM 5.5 g/dL (6.4-8.2); SODIUM 134 mmol/L (136-145); UREA NITROGEN 25 mg/dL (7-18); eGFR NON AFRICAN AMERICAN > 90 mL/min (90-120)
[2017-10-28 07:15] LABS: T4 THYROXIN - FREE 1.19 ng/dL (0.76-1.46); THYROID STIMULATING HORMONE 0.58 uIU/mL (0.36-3.74)
[2017-10-28 10:20] LABS: FUNGUS STAIN Final report (())
[2017-10-29] VITALS (26 sets, daily range): BP systolic 96–123; BP diastolic 56–98
[2017-10-29 06:05] LABS: HEMOGLOBIN 8.2 g/dL (13.5-17.5); MCH 30.8 pg (26.0-34.0); MCHC 34.2 g/dL (31.0-37.0); MCV 90.2 fL (80.0-100.0); MEAN PLATELET VOLUME 10.2 fL (7.4-10.4); RBC 2.66 10x6/uL (4.20-6.10); RDW 13.6 % (11.5-14.5); WBC 12.6 10x3/uL (4.8-10.8)
[2017-10-29 06:26] LABS: ALBUMIN 2.8 g/dL (3.4-5.0); ALKALINE PHOSPHATASE 47 U/L (46-116); ALT (SGPT) 34 U/L (10-68); CALC OSMOLALITY 268 mosm/kg (275-300); CALCIUM 8.6 mg/dL (8.5-10.1); CARBON DIOXIDE 26.4 mmol/L (21.0-32.0); CHLORIDE - SERUM 97 mmol/L (98-107); CREATININE - SERUM 0.7 mg/dL (0.6-1.3); GLUCOSE 155 mg/dL (74-106); POTASSIUM - SERUM 4.3 mmol/L (3.5-5.1); PROTEIN - SERUM 5.7 g/dL (6.4-8.2); SODIUM 131 mmol/L (136-145); UREA NITROGEN 21 mg/dL (7-18); eGFR NON AFRICAN AMERICAN > 90 mL/min (90-120)
[2017-10-29 19:08] LABS: COXSACKIE B1 AB Negative (Neg:<1:8); COXSACKIE B2 AB Negative (Neg:<1:8); COXSACKIE B3 AB Negative (Neg:<1:8); COXSACKIE B4 AB Negative (Neg:<1:8); COXSACKIE B5 AB 1:16 (Neg:<1:8); COXSACKIE B6 AB Negative (Neg:<1:8)
[2017-10-30] VITALS (23 sets, daily range): BP systolic 101–124; BP diastolic 57–78
[2017-10-30 06:08] LABS: HEMATOCRIT 23.5 % (42.0-54.0); HEMOGLOBIN 8.1 g/dL (13.5-17.5); MCH 31.3 pg (26.0-34.0); MCHC 34.5 g/dL (31.0-37.0); MCV 90.7 fL (80.0-100.0); RBC 2.59 10x6/uL (4.20-6.10); RDW 13.3 % (11.5-14.5); WBC 9.8 10x3/uL (4.8-10.8)
[2017-10-30 06:59] LABS: ALBUMIN 2.6 g/dL (3.4-5.0); ALKALINE PHOSPHATASE 47 U/L (46-116); ALT (SGPT) 34 U/L (10-68); CALC OSMOLALITY 270 mosm/kg (275-300); CALCIUM 8.5 mg/dL (8.5-10.1); CARBON DIOXIDE 24.8 mmol/L (21.0-32.0); CHLORIDE - SERUM 98 mmol/L (98-107); CREATININE - SERUM 0.6 mg/dL (0.6-1.3); GLUCOSE 135 mg/dL (74-106); POTASSIUM - SERUM 4.1 mmol/L (3.5-5.1); PROTEIN - SERUM 5.7 g/dL (6.4-8.2); SODIUM 134 mmol/L (136-145); UREA NITROGEN 16 mg/dL (7-18); eGFR NON AFRICAN AMERICAN > 90 mL/min (90-120)
[2017-10-31] VITALS (38 sets, daily range): BP systolic 93–126; BP diastolic 39–76
[2017-10-31 07:09] LABS: ALBUMIN 2.4 g/dL (3.4-5.0); ALKALINE PHOSPHATASE 51 U/L (46-116); ALT (SGPT) 34 U/L (10-68); BILIRUBIN - TOTAL 0.57 mg/dL (0.2-1.3); CALC OSMOLALITY 268 mosm/kg (275-300); CALCIUM 8.6 mg/dL (8.5-10.1); CARBON DIOXIDE 27.7 mmol/L (21.0-32.0); CHLORIDE - SERUM 98 mmol/L (98-107); CREATININE - SERUM 0.6 mg/dL (0.6-1.3); GLUCOSE 131 mg/dL (74-106); HEMATOCRIT 24.4 % (42.0-54.0); HEMOGLOBIN 8.1 g/dL (13.5-17.5); MCH 30.6 pg (26.0-34.0); MCHC 33.2 g/dL (31.0-37.0); MCV 92.1 fL (80.0-100.0); MEAN PLATELET VOLUME 10.2 fL (7.4-10.4); POTASSIUM - SERUM 3.9 mmol/L (3.5-5.1); PROTEIN - SERUM 5.6 g/dL (6.4-8.2); RBC 2.65 10x6/uL (4.20-6.10); RDW 13.3 % (11.5-14.5); SODIUM 133 mmol/L (136-145); UREA NITROGEN 14 mg/dL (7-18); WBC 9.1 10x3/uL (4.8-10.8); eGFR NON AFRICAN AMERICAN > 90 mL/min (90-120)
[2017-10-31 14:14] LABS: LEGIONELLA ANTIGEN - URINE Negative (Negative)
[2017-11-01] VITALS (40 sets, daily range): BP systolic 86–138; BP diastolic 49–78
[2017-11-01 11:54] LABS: CALC OSMOLALITY 273 mosm/kg (275-300); CALCIUM 8.5 mg/dL (8.5-10.1); CARBON DIOXIDE 26.7 mmol/L (21.0-32.0); CHLORIDE - SERUM 102 mmol/L (98-107); CREATININE - SERUM 0.8 mg/dL (0.6-1.3); GLUCOSE 136 mg/dL (74-106); POTASSIUM - SERUM 3.8 mmol/L (3.5-5.1); SODIUM 136 mmol/L (136-145); UREA NITROGEN 13 mg/dL (7-18); eGFR NON AFRICAN AMERICAN > 90 mL/min (90-120)
[2017-11-01 12:22] LABS: BASOPHILS 0.3 % (0-2); EOSINOPHILS 1.8 % (0-7); HEMATOCRIT 23.7 % (42.0-54.0); HEMOGLOBIN 7.7 g/dL (13.5-17.5); IMMATURE GRANULOCYTES 1.6 % (0-5); LYMPHOCYTES 17.1 % (15-50); MCHC 32.5 g/dL (31.0-37.0); MCV 92.2 fL (80.0-100.0); MEAN PLATELET VOLUME 9.2 fL (7.4-10.4); MONOCYTES 9.6 % (2-11); NEUTROPHILS 69.6 % (40-80); PLATELET COUNT 277 10x3/uL (130-400); RBC 2.57 10x6/uL (4.20-6.10); RDW 13.4 % (11.5-14.5); WBC 8.7 10x3/uL (4.8-10.8)
[2017-11-01 12:49] LABS: CALC OSMOLALITY 277 mosm/kg (275-300); CALCIUM 8.3 mg/dL (8.5-10.1); CARBON DIOXIDE 27.1 mmol/L (21.0-32.0); CHLORIDE - SERUM 103 mmol/L (98-107); CREATININE - SERUM 0.7 mg/dL (0.6-1.3); GLUCOSE 131 mg/dL (74-106); SODIUM 138 mmol/L (136-145); UREA NITROGEN 13 mg/dL (7-18); eGFR NON AFRICAN AMERICAN > 90 mL/min (90-120)
[2017-11-02] VITALS (10 sets, daily range): BP systolic 113–127; BP diastolic 49–71
[2017-11-02 06:13] LABS: HEMATOCRIT 23.1 % (42.0-54.0); HEMOGLOBIN 7.7 g/dL (13.5-17.5); MCH 30.8 pg (26.0-34.0); MCHC 33.3 g/dL (31.0-37.0); MCV 92.4 fL (80.0-100.0); MEAN PLATELET VOLUME 9.5 fL (7.4-10.4); RBC 2.5 10x6/uL (4.20-6.10); RDW 13.6 % (11.5-14.5); WBC 9.3 10x3/uL (4.8-10.8)
[2017-11-02 06:44] LABS: CALC OSMOLALITY 274 mosm/kg (275-300); CALCIUM 8.7 mg/dL (8.5-10.1); CARBON DIOXIDE 25.9 mmol/L (21.0-32.0); CHLORIDE - SERUM 103 mmol/L (98-107); GLUCOSE 118 mg/dL (74-106); POTASSIUM - SERUM 4.1 mmol/L (3.5-5.1); SODIUM 137 mmol/L (136-145); UREA NITROGEN 12 mg/dL (7-18); eGFR NON AFRICAN AMERICAN 87 mL/min (90-120)
[2017-11-02 06:45] LABS: CREATININE - SERUM 0.9 mg/dL (0.6-1.3)
[2017-11-02] MEDS ORDERED: HEMOCYTE PLUS C1 CAP PO (08:24)
[2017-11-02] MEDS ORDERED: HYDROCODONE-APA1 TAB PO (08:27)
[2017-11-02 09:40] LABS: HEMATOCRIT 24.3 % (42.0-54.0); HEMOGLOBIN 8.1 g/dL (13.5-17.5)
[2017-11-02] MEDS ORDERED: CORDARONE200 MG PO (11:38)
[2017-11-04 10:19] LABS: VIRAL - RESULT No virus isolated. (())
[2017-11-04 16:15] LABS: HISTOPLASMA GAL MANNAN AG SER <0.5 (<0.5 ng/mL)
[2017-11-23 07:28] LABS: FUNGUS MYCOLOGY CULTURE Final report (())
== END 2017-11-02 12:45 | disposition home or self-care (01) | DRG 234 ==
LOC: D.ER 10:26 → D.CVICU 12:42 → D.M2 12:42 → D.CVICU 10-26 10:40
PROVIDERS: Emergency Medicine; Internal Medicine Cardiovascular Disease; Internal Medicine Interventional Cardiology; Student in an Organized Health Care Education/Training Program
PROC: 4A023N7 Measurement of Cardiac Sampling and Pressure, Left Heart, Percutaneous Approach (ICD-10-PCS; 2017-10-23)
PROC: B2111ZZ Fluoroscopy of Multiple Coronary Arteries using Low Osmolar Contrast (ICD-10-PCS; principal; 2017-10-23 11:41)
PROC: 02100ZC Bypass Coronary Artery, One Artery from Thoracic Artery, Open Approach (ICD-10-PCS; 2017-10-26)
PROC: 021209W Bypass Coronary Artery, Three Arteries from Aorta with Autologous Venous Tissue, Open Approach (ICD-10-PCS; 2017-10-26)
PROC: 06BP0ZZ Excision of Right Saphenous Vein, Open Approach (ICD-10-PCS; 2017-10-26)
PROC: 02BN0ZX Excision of Pericardium, Open Approach, Diagnostic (ICD-10-PCS; 2017-10-26)
PROC: 5A1221Z Performance of Cardiac Output, Continuous (ICD-10-PCS; 2017-10-26)
PROC: B245ZZ4 Ultrasonography of Left Heart, Transesophageal (ICD-10-PCS; 2017-10-26)
DX: I25.110 Atherosclerotic heart disease of native coronary artery with unstable angina pectoris (principal); D62 Acute posthemorrhagic anemia; B33.23 Viral pericarditis; I48.92 Unspecified atrial flutter; I44.2 Atrioventricular block, complete; E78.5 Hyperlipidemia, unspecified; I10 Essential (primary) hypertension; I35.1 Nonrheumatic aortic (valve) insufficiency; I48.0 Paroxysmal atrial fibrillation; J44.9 Chronic obstructive pulmonary disease, unspecified; I35.0 Nonrheumatic aortic (valve) stenosis; Z72.0 Tobacco use

== ENCOUNTER → 2017-11-18 10:03 | Outpatient (CLI) | payer MEDICARE ==
[2017-10-27 19:24] VITALS: BMI 31.7
[~2017-11-18 10:03] MED LIST: BAYER CHEWABLE81 MG PO; CARDURA4 MG PO; CORDARONE200 MG PO; HEMOCYTE PLUS C1 CAP PO; HYDROCODONE-APA1 TAB PO; NIASPAN500 MG PO; NORVASC5 MG PO; VITAMIN C1000 MG PO
[2017-11-18 11:09] LABS: HEMATOCRIT 38.8 % (42.0-54.0); HEMOGLOBIN 12.8 g/dL (13.5-17.5); MCH 30.5 pg (26.0-34.0); MCV 92.6 fL (80.0-100.0); MEAN PLATELET VOLUME 9.4 fL (7.4-10.4); RBC 4.19 10x6/uL (4.20-6.10); RDW 13.4 % (11.5-14.5); WBC 8.9 10x3/uL (4.8-10.8)
[2017-11-18 11:15] LABS: CALC OSMOLALITY 274 mosm/kg (275-300); CALCIUM 9.4 mg/dL (8.5-10.1); CARBON DIOXIDE 29.6 mmol/L (21.0-32.0); CHLORIDE - SERUM 100 mmol/L (98-107); GLUCOSE 142 mg/dL (74-106); POTASSIUM - SERUM 4.5 mmol/L (3.5-5.1); SODIUM 136 mmol/L (136-145); UREA NITROGEN 16 mg/dL (7-18); eGFR NON AFRICAN AMERICAN 77 mL/min (90-120)
== END | disposition home or self-care (01) ==
LOC: D.RAD 08:30
PROVIDERS: Internal Medicine Cardiovascular Disease
DX: J91.8 Pleural effusion in other conditions classified elsewhere (principal); D64.9 Anemia, unspecified

== ENCOUNTER → 2019-02-08 09:40 | Outpatient (CLI) | payer OTHER ==
[2017-10-27 19:24] VITALS: BMI 31.7
--- NOTE | 2019-02-13 08:49 | EC ---
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 Ao 196 cm/sec RVOT 124 cm/sec RA cm/sec PA 145 cm/sec AV Gradient Peak 15.41mmHg AV Mean 7.74 mmHg AV Area 1.8 cm MV Gradient Peak 7.54 mmHg MV Mean 3.25 mmHg MV Area cm COMMENTS: Fruit Washer: Kiya LINDSEY Procurement Inspector: 3 Dr. Ruggiero TAPE# PACS Pericardial Effusion N DATE OF SERVICE: 02/08/2019 Adequate 2-D echo, color-flow and spectral Doppler, and M-mode. There is mild LVH. LV internal dimension is normal. Wall motion is normal. EF is greater than or equal to 55%. Aortic valve is tricuspid. No evidence of stenosis by Doppler interrogation. Left atrium is normal at 3.6 cm. Mitral valve shows no prolapse. Mild MR. Right-sided chambers are grossly normal. Trace TR. 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
== END | disposition home or self-care (01) ==
LOC: D.HCCARDIO 09:40
PROVIDERS: ATTEND Internal Medicine Interventional Cardiology
DX: I25.10 Atherosclerotic heart disease of native coronary artery without angina pectoris (principal)